=== PATIENT | female | born 1955 | race Caucasian/White ===

== ENCOUNTER 2019-11-16 09:14 | Observation (INO) | payer BC ==
[2019-11-16] MEDS ORDERED: ASPIRIN 81 MG PO STA (10:13)
[2019-11-16] MEDS ORDERED: SODIUM CHLORIDE 0.9% 500 ML 500 ML IV STA (10:13)
[2019-11-16 10:37] LABS: Basophils # (A) 0.1 k/uL (0-0.2); Basophils % (A) 1 %; Eosinophils # (A) 0.1 k/uL (0-0.7); Eosinophils % (A) 1 %; HCT 45.6 % (34.0-46.0); Lymphocytes # (A) 1.4 k/uL (1.0-4.8); Lymphocytes % (A) 16 %; MCHC 32.8 g/dL (31.0-37.0); MCV 91.5 fL (80.0-100.0); Mean Platelet Volume 7.7; Monocytes # (A) 0.3 k/uL (0-1.0); Monocytes % (A) 4 %; Neutrophils # (A) 6.6 k/uL (1.3-7.7); Neutrophils % (A) 77 %; Platelet Count 254 k/uL (150-450); RBC 4.99 m/uL (3.80-5.40); RDW 12.9 % (11.5-15.5); WBC 8.6 k/uL (3.8-10.6)
[2019-11-16 10:50] LABS: ALT 18 U/L (4-34); AST 27 U/L (14-36); African American GFR (CKD) >90 (>60 ml/min/1.73 sqM); Albumin 4.8 g/dL (3.5-5.0); Alkaline Phosphatase 96 U/L (38-126); Anion Gap 12 mmol/L; Blood Urea Nitrogen 16 mg/dL (7-17); Calcium 10.1 mg/dL (8.4-10.2); Carbon Dioxide 25 mmol/L (22-30); Chloride 104 mmol/L (98-107); Glucose 136 mg/dL (74-99); Non-African American GFR(CKD) 79 (>60 ml/min/1.73 sqM); Sodium 141 mmol/L (137-145); Total Bilirubin 0.6 mg/dL (0.2-1.3); Total Protein 8.4 g/dL (6.3-8.2)
--- NOTE | 2019-11-16 10:51 | ED ---
General Adult HPI - General Source: patient, RN notes reviewed, old records reviewed Mode of arrival: ambulatory Limitations: no limitations <Richi Adrian - Last Filed: 11/16/19 11:30> <Re Dunn - Last Filed: 11/24/19 12:21> - General Chief complaint: Chest Pain Stated complaint: "don't feel right" Time Seen by Provider: 11/16/19 09:58 - History of Present Illness Initial comments: 64-year-old female patient past history significant for hyperlipidemia, hypothyroidism, presents to ED for chief complaint of waxing and waning chest tightness, shortness of breath, generalized unwell feeling. Patient reports that she quit smoking 9 months ago. Patient reports that since she quit smoking she has not been feeling well. Reports that she has been experiencing exertional dyspnea. Reports that she has been experiencing daily sharp substernal chest pains. Reports that at this time she is not experiencing any chest pain. Reports that she did have a stress test approximately 15 years ago however she is unable tolerate it due to exercise capacity. Reports that she also had a echocardiogram which is reportedly benign. Denies any previous cardiac history. Denies any other complaints. Systemic: Pt denies fatigue, fever/chills, rash. Pt denies weakness, night sweats, weight loss. Neuro: Pt denies headache, visual disturbances, syncope or pre-syncope. HEENT: Pt denies ocular discharge or irritation, otalgia, rhinorrhea, pharyngitis or notable lymphadenopathy. Cardiopulmonary: Pt denies heart palpitations, dyspnea on exertion. Abdominal/GI: Pt denies abdominal pain, n/v/d. : Pt denies dysuria, burning w/ urination, frequency/urgency. Denies new onset urinary or bowel incontinence. MSK: Pt denies myalgia, loss of strength or function in extremities. Neuro: Pt denies new onset weakness, paresthesias. (Richi Adrian) - Related Data Home Medications Medication Instructions Recorded Confirmed Calcium Carbonate/Vitamin D3 1 tab PO W/SUPPER 11/16/19 11/16/19 [Calcium 500-Vit D3 200 Tablet] Levothyroxine Sodium [Synthroid] 75 mcg PO DAILY 11/16/19 11/16/19 Multivitamins, Thera [Multivitamin 1 tab PO W/SUPPER 11/16/19 11/16/19 (formulary)] Previous Rx's Medication Instructions Recorded Albuterol Sulfate [Proair Hfa] 1 - 2 puff INHALATION RT-Q6H PRN 11/17/19 #1 inhaler Doxycycline [Vibramycin] 100 mg PO BID 3 Days #6 cap 11/17/19 Ezetimibe [Zetia] 10 mg PO DAILY #30 tab 11/17/19 Famotidine [Pepcid] 20 mg PO Q12HR #60 tab 11/17/19 Pravastatin Sodium [Pravachol] 80 mg PO DAILY #30 tab 11/17/19 predniSONE 0 mg PO DIRECTED #30 tab 11/17/19 Allergies Allergy/AdvReac Type Severity Reaction Status Date / Time No Known Allergies Allergy Verified 11/16/19 11:24 Review of Systems ROS Other: All systems not noted in ROS Statement are negative. <Richi Adrian - Last Filed: 11/16/19 11:30> ROS Other: All systems not noted in ROS Statement are negative. <Re Dunn - Last Filed: 11/24/19 12:21> ROS Statement: Those systems with pertinent positive or pertinent negative responses have been documented in the HPI. Past Medical History Past Medical History: Hyperlipidemia History of Any Multi-Drug Resistant Organisms: None Reported Past Surgical History: Hysterectomy Past Psychological History: No Psychological Hx Reported Smoking Status: Former smoker Past Alcohol Use History: None Reported Past Drug Use History: None Reported <Richi Adrian - Last Filed: 11/16/19 11:30> - Past Family History Father Family Medical History: COPD, Coronary Artery Disease (CAD), Myocardial Infarction (TN) Additional Family Medical History / Comment(s): Father had his first TN at the age of 36 yrs. Mother Family Medical History: COPD, CVA/TIA Additional Family Medical History / Comment(s): Mother had a CVA at the age of 4 2 yrs. She had depression and urinary incontinence. <Re Dunn - Last Filed: 11/24/19 12:21> General Exam Limitations: no limitations <Richi Adrian - Last Filed: 11/16/19 11:30> - General Exam Comments Initial Comments: Constitutional: NAD, AOX3, Pt has pleasant affect. HEENT: NC/AT, trachea midline, neck supple, no lymphadenopathy. Posterior p harynx non erythematous, without exudates. External ears appear normal, without discharge. Mucous membranes moist. Eyes PERRLA, EOM intact. There is no scleral icterus. No pallor noted. Cardiopulmonary: RRR, no murmurs, rubs or gallops, no JVD noted. Lungs CTAB in anterior and posterior ornelas. No peripheral edema. Abdominal exam: Abdomen soft and non-distended. Abdomen non-tender to palpation in all 4 quadrants. Bowel sounds active in LLQ. No hepatosplenomegaly. No ecchymosis Neuro: CN II-XII intact. No nuchal rigidity. No raccon eyes, no quinonez sign, no hemotympanum. No cervical spinal tenderness. MSK: No posterior calf tenderness bilaterally, homans sign negative bilaterally. Posterior tibialis and radial pulse +2 bilaterally. Sensation intact in upper and lower extremities. Full active ROM in upper and lower extremities, 5/5 stregnth. (Richi Adrian) Course Vital Signs 11/16/19 11/16/19 11/16/19 09:16 09:42 10:03 Temperature 97.8 F Pulse Rate 118 H 98 Respiratory 19 18 18 Rate Blood Pressure 140/86 138/94 O2 Sat by Pulse 96 96 Oximetry 11/16/19 11/16/19 11/16/19 11:34 12:44 14:47 Temperature Pulse Rate 96 106 H 90 Respiratory 19 20 16 Rate Blood Pressure 137/95 131/99 141/98 O2 Sat by Pulse 96 96 95 Oximetry 11/16/19 14:56 Temperature 97.8 F Pulse Rate 90 Respiratory 16 Rate Blood Pressure 141/98 O2 Sat by Pulse 95 Oximetry Medical Decision Making - Lab Data Result diagrams: 11/16/19 09:53 11/16/19 09:53 - EKG Data -: EKG Interpreted by Me (and Dr. Dunn ) <Richi Adrian - Last Filed: 11/16/19 11:30> - Lab Data Result diagrams: 11/16/19 09:53 11/16/19 09:53 <Re Dunn - Last Filed: 11/24/19 12:21> - Medical Decision Making 64-year-old female patient past history significant for hyperlipidemia, hypothyroidism, presents to ED for chief complaint of waxing and waning chest tightness, shortness of breath, generalized unwell feeling. Patient reports that she quit smoking 9 months ago. Patient reports that since she quit smoking she has not been feeling well. Reports that she has been experiencing exertional dyspnea. Reports that she has been experiencing daily sharp substernal chest pains. Reports that at this time she is not experiencing any chest pain. Reports that she did have a stress test approximately 15 years ago however she is unable tolerate it due to exercise capacity. Reports that she also had a echocardiogram which is reportedly benign. Denies any previous cardiac history. Denies any other complaints. Patient vital signs are stable, afebrile. Physical exam demonstrate acute pathology. The investigations are overall benign. D-dimer is negative. Troponin is negative. TSH is within normal limits. UA negative. Chest x-ray negative for acute pulmonary disease. EKG does display t wave inversions. Patient will be admitted for cardiology evaluation serial troponins. Case discussed with Dr. Dunn. (Richi Adrian) I was available for consultation in the emergency department. The history and physical exam were done by the midlevel provider. I was consulted for this patie nts care. I reviewed the case with the midlevel provider and based on their presentation of the patient, I agree with the assessment, medical decision making and plan of care as documented. I discussed the patients care with Dr. Johnson who accepted admission of the patient. Chart was dictated using wywy dictation software. Attempts were made to correct any dictation errors however some typographical errors may persist. (Re Dunn) - Lab Data Lab Results 11/16/19 11/16/19 11/16/19 Range/Units 09:53 09:53 09:53 WBC 8.6 (3.8-10.6) k/uL RBC 4.99 (3.80-5.40) m/uL Hgb 15.0 (11.4-16.0) gm/dL Hct 45.6 (34.0-46.0) % MCV 91.5 (80.0-100.0) fL MCH 30.0 (25.0-35.0) pg MCHC 32.8 (31.0-37.0) g/dL RDW 12.9 (11.5-15.5) % Plt Count 254 (150-450) k/uL Neutrophils % 77 % Lymphocytes % 16 % Monocytes % 4 % Eosinophils % 1 % Basophils % 1 % Neutrophils # 6.6 (1.3-7.7) k/uL Lymphocytes # 1.4 (1.0-4.8) k/uL Monocytes # 0.3 (0-1.0) k/uL Eosinophils # 0.1 (0-0.7) k/uL Basophils # 0.1 (0-0.2) k/uL PT 10.2 (9.0-12.0) sec INR 1.0 (<1.2) APTT 22.9 (22.0-30.0) sec D-Dimer 0.27 (<0.60) mg/L FEU Sodium 141 (137-145) mmol/L Potassium 4.0 (3.5-5.1) mmol/L Chloride 104 (98-107) mmol/L Carbon Dioxide 25 (22-30) mmol/L Anion Gap 12 mmol/L BUN 16 (7-17) mg/dL Creatinine 0.81 (0.52-1.04) mg/dL Est GFR (CKD-EPI)AfAm >90 (>60 ml/min/1.73 sqM) Est GFR (CKD-EPI)NonAf 79 (>60 ml/min/1.73 sqM) Glucose 136 H (74-99) mg/dL Plasma Lactic Acid Meek (0.7-2.0) mmol/L Calcium 10.1 (8.4-10.2) mg/dL Magnesium 2.0 (1.6-2.3) mg/dL Total Bilirubin 0.6 (0.2-1.3) mg/dL AST 27 (14-36) U/L ALT 18 (4-34) U/L Alkaline Phosphatase 96 (38-126) U/L Troponin I (0.000-0.034) ng/mL NT-Pro-B Natriuret Pep pg/mL Total Protein 8.4 H (6.3-8.2) g/dL Albumin 4.8 (3.5-5.0) g/dL Triglycerides (<150) mg/dL Cholesterol (<200) mg/dL LDL Cholesterol, Calc (0-99) mg/dL HDL Cholesterol (40-60) mg/dL TSH 2.970 (0.465-4.680) mIU/L Urine Color Urine Appearance (Clear) Urine pH (5.0-8.0) Ur Specific Julian (1.001-1.035) Urine Protein (Negative) Urine Glucose (UA) (Negative) Urine Ketones (Negative) Urine Blood (Negative) Urine Nitrite (Negative) Urine Bilirubin (Negative) Urine Urobilinogen (<2.0) mg/dL Ur Leukocyte Esterase (Negative) Urine RBC (0-5) /hpf Urine WBC (0-5) /hpf Ur Squamous Epith Cells (0-4) /hpf Urine Mucus (None) /hpf 11/16/19 11/16/19 11/16/19 Range/Units 09:53 09:53 09:53 WBC (3.8-10.6) k/uL RBC (3.80-5.40) m/uL Hgb (11.4-16.0) gm/dL Hct (34.0-46.0) % MCV (80.0-100.0) fL MCH (25.0-35.0) pg MCHC (31.0-37.0) g/dL RDW (11.5-15.5) % Plt Count (150-450) k/uL Neutrophils % % Lymphocytes % % Monocytes % % Eosinophils % % Basophils % % Neutrophils # (1.3-7.7) k/uL Lymphocytes # (1.0-4.8) k/uL Monocytes # (0-1.0) k/uL Eosinophils # (0-0.7) k/uL Basophils # (0-0.2) k/uL PT (9.0-12.0) sec INR (<1.2) APTT (22.0-30.0) sec D-Dimer (<0.60) mg/L FEU Sodium (137-145) mmol/L Potassium (3.5-5.1) mmol/L Chloride (98-107) mmol/L Carbon Dioxide (22-30) mmol/L Anion Gap mmol/L BUN (7-17) mg/dL Creatinine (0.52-1.04) mg/dL Est GFR (CKD-EPI)AfAm (>60 ml/min/1.73 sqM) Est GFR (CKD-EPI)NonAf (>60 ml/min/1.73 sqM) Glucose (74-99) mg/dL Plasma Lactic Acid Meek 2.0 (0.7-2.0) mmol/L Calcium (8.4-10.2) mg/dL Magnesium (1.6-2.3) mg/dL Total Bilirubin (0.2-1.3) mg/dL AST (14-36) U/L ALT (4-34) U/L Alkaline Phosphatase (38-126) U/L Troponin I <0.012 (0.000-0.034) ng/mL NT-Pro-B Natriuret Pep 69 pg/mL Total Protein (6.3-8.2) g/dL Albumin (3.5-5.0) g/dL Triglycerides (<150) mg/dL Cholesterol (<200) mg/dL LDL Cholesterol, Calc (0-99) mg/dL HDL Cholesterol (40-60) mg/dL TSH (0.465-4.680) mIU/L Urine Color Urine Appearance (Clear) Urine pH (5.0-8.0) Ur Specific Julian (1.001-1.035) Urine Protein (Negative) Urine Glucose (UA) (Negative) Urine Ketones (Negative) Urine Blood (Negative) Urine Nitrite (Negative) Urine Bilirubin (Negative) Urine Urobilinogen (<2.0) mg/dL Ur Leukocyte Esterase (Negative) Urine RBC (0-5) /hpf Urine WBC (0-5) /hpf Ur Squamous Epith Cells (0-4) /hpf Urine Mucus (None) /hpf 11/16/19 11/16/19 Range/Units 09:53 10:42 WBC (3.8-10.6) k/uL RBC (3.80-5.40) m/uL Hgb (11.4-16.0) gm/dL Hct (34.0-46.0) % MCV (80.0-100.0) fL MCH (25.0-35.0) pg MCHC (31.0-37.0) g/dL RDW (11.5-15.5) % Plt Count (150-450) k/uL Neutrophils % % Lymphocytes % % Monocytes % % Eosinophils % % Basophils % % Neutrophils # (1.3-7.7) k/uL Lymphocytes # (1.0-4.8) k/uL Monocytes # (0-1.0) k/uL Eosinophils # (0-0.7) k/uL Basophils # (0-0.2) k/uL PT (9.0-12.0) sec INR (<1.2) APTT (22.0-30.0) sec D-Dimer (<0.60) mg/L FEU Sodium (137-145) mmol/L Potassium (3.5-5.1) mmol/L Chloride (98-107) mmol/L Carbon Dioxide (22-30) mmol/L Anion Gap mmol/L BUN (7-17) mg/dL Creatinine (0.52-1.04) mg/dL Est GFR (CKD-EPI)AfAm (>60 ml/min/1.73 sqM) Est GFR (CKD-EPI)NonAf (>60 ml/min/1.73 sqM) Glucose (74-99) mg/dL Plasma Lactic Acid Meek (0.7-2.0) mmol/L Calcium (8.4-10.2) mg/dL Magnesium (1.6-2.3) mg/dL Total Bilirubin (0.2-1.3) mg/dL AST (14-36) U/L ALT (4-34) U/L Alkaline Phosphatase (38-126) U/L Troponin I (0.000-0.034) ng/mL NT-Pro-B Natriuret Pep pg/mL Total Protein (6.3-8.2) g/dL Albumin (3.5-5.0) g/dL Triglycerides 101 (<150) mg/dL Cholesterol 213 H (<200) mg/dL LDL Cholesterol, Calc 131 H (0-99) mg/dL HDL Cholesterol 62 H (40-60) mg/dL TSH (0.465-4.680) mIU/L Urine Color Yellow Urine Appearance Clear (Clear) Urine pH 6.5 (5.0-8.0) Ur Specific Julian 1.007 (1.001-1.035) Urine Protein Negative (Negative) Urine Glucose (UA) Negative (Negative) Urine Ketones Negative (Negative) Urine Blood Negative (Negative) Urine Nitrite Negative (Negative) Urine Bilirubin Negative (Negative) Urine Urobilinogen <2.0 (<2.0) mg/dL Ur Leukocyte Esterase Trace H (Negative) Urine RBC <1 (0-5) /hpf Urine WBC 2 (0-5) /hpf Ur Squamous Epith Cells <1 (0-4) /hpf Urine Mucus Rare H (None) /hpf - EKG Data EKG Comments: Ventricular rate 95, RI interval 120, QRS 82, QT/QTC 306/484. Normal sensory ago, nonspecific ST and T-wave abnormality. Abnormal EKG. (Richi Adrian) Disposition Is patient prescribed a controlled substance at d/c from ED?: No <Richi Adrian - Last Filed: 11/16/19 11:30> <Re Dunn - Last Filed: 11/24/19 12:21> Clinical Impression: Chest pain Disposition: ADMITTED IP TO THIS HOSP Condition: Serious
[2019-11-16 10:52] LABS: D-Dimer 0.27 mg/L FEU (<0.60); Partial Thromboplastin Time 22.9 sec (22.0-30.0); Prothrombin Time 10.2 sec (9.0-12.0)
[2019-11-16 11:00] LABS: Appearance,Urine Clear (Clear); Bilirubin,Urine Negative (Negative); Blood,Urine Negative (Negative); Color,Urine Yellow; Glucose,Urine (UA) Negative (Negative); Ketones,Urine Negative (Negative); Leukocyte Esterase,Urine Trace (Negative); Mucus,Urine Rare /hpf; Nitrite,Urine Negative (Negative); PH, Urine 6.5 (5.0-8.0); Protein,Urine Negative (Negative); RBC,Urine <1 /hpf (0-5); Specific Gravity,Urine 1.007 (1.001-1.035); Squamous Epithelial Cell,Urine <1 /hpf (0-4); Urobilinogen,Urine <2.0 mg/dL (<2.0); WBC,Urine 2 /hpf (0-5)
--- NOTE | 2019-11-16 11:01 | XR ---
EXAMINATION TYPE: XR chest 2V DATE OF EXAM: 11/16/2019 COMPARISON: NONE HISTORY: Shortness of breath TECHNIQUE: Frontal and lateral views of the chest are obtained. FINDINGS: Scattered senescent parenchymal changes noted. Hyperinflation compatible with COPD. No evidence for infiltrate. No evidence for atelectasis. Heart size is stable. Mediastinal structures are stable and grossly unremarkable. No evidence for hilar prominence. Degenerative changes dorsal spine. IMPRESSION: 1. No evidence for acute pulmonary disease.
[2019-11-16] MEDS ORDERED: NITROGLYCERIN SL TABS 0.4 MG TAB SUBLINGUAL PRN (11:31)
[2019-11-16] MEDS ORDERED: IPRATROPIUM-ALBUTEROL 3 ML NEB INHALATION PRN (11:33)
--- NOTE | 2019-11-16 13:00 | ECHOF ---
Referral Reason:chest pain, prior 15+ years ago MEASUREMENTS -------- HEIGHT: 160.0 cm WEIGHT: 60.8 kg BP: 137/95 RVIDd: 2.8 cm (< 3.3) IVSd: 1.1 cm (0.6 - 1.1) LVIDd: 3.6 cm (3.9 - 5.3) LVPWd: 1.3 cm (0.6 - 1.1) IVSs: 1.5 cm LVIDs: 2.4 cm LVPWs: 1.7 cm LA Diam: 3.1 cm (2.7 - 3.8) Ao Diam: 3.1 cm (2.0 - 3.7) AV Cusp: 2.0 cm (1.5 - 2.6) MV EXCURSION: 18.829 mm (> 18.000) MV EF SLOPE: 55 mm/s (70 - 150) EPSS: 0.7 cm MV E Jordan: 0.63 m/s MV DecT: 252 ms MV A Jordan: 0.80 m/s MV E/A Ratio: 0.79 TAPSE: 20.13 mm FINDINGS -------- Sinus rhythm. This was a technically adequate study. The left ventricular size is normal. There is mild concentric left ventricular hypertrophy. Overa ll left ventricular systolic function is normal with, an EF between 60 - 65 %. The right ventricle is normal in size. The left atrial size is normal. The right atrium is normal in size. Interatrial and interventricular septum intact. The aortic valve is trileaflet and appears structurally normal. The mitral valve is normal. The tricuspid valve appears structurally normal. There is no pulmonic regurgitation present. The aortic root size is normal. Normal inferior vena cava with normal inspiratory collapse consistent with estimated right atrial pre ssure of 5 mmHg. Echo free space may represent effusion or a pericardial fat pad. CONCLUSIONS -------- 1. Sinus rhythm. 2. This was a technically adequate study. 3. The left ventricular size is normal. 4. There is mild concentric left ventricular hypertrophy. 5. Overall left ventricular systolic function is normal with, an EF between 60 - 65 %. 6. The right ventricle is normal in size. 7. The left atrial size is normal. 8. The right atrium is normal in size. 9. Interatrial and interventricular septum intact. 10. The aortic valve is trileaflet and appears structurally normal. 11. The mitral valve is normal. 12. The tricuspid valve appears structurally normal. 13. There is no pulmonic regurgitation present. 14. The aortic root size is normal. 15. Normal inferior vena cava with normal inspiratory collapse consistent with estimated right atrial pressure of 5 mmHg. 16. Echo free space may represent effusion or a pericardial fat pad. COMMERCIAL CREDIT REVIEWER: Sonia Fernandez RDCS
--- NOTE | 2019-11-16 13:06 | P.HPIM ---
History of Present Illness This is a pleasant 64 years old female with past medical history of hyperlipidemia and hypothyroidism who presents because of ongoing dyspnea. Patient used to smoke about 1 pack per day she quit about 9 months ago because she was feeling dyspnea, however her dyspnea wasn't improving and she kept having this chest tightness. She went to see her primary care Dr. Curtis yesterday with an EKG and found a missed. A here for her to emergency room. Also patient was feeling jittery and palpitation however she denies overt chest pain, no neck pain or arm pain. She denies alcohol or illicit drugs. Vital signs stable. Labs including CBC, BMP, INR, liver enzymes are unremarkable, Glucose slightly elevated at 136. Chest x-ray no acute process, hyperinflation goes with COPD. D-dimer is negative for 0.27 In the emergency room patient was started on aspirin and normal saline and 100 mL per hour Echocardiogram showing mild left ventricular hypertrophy with ejection fraction 60-65% with no significant valvular heart disease Review of Systems CONSTITUTIONAL: No fever, no malaise, no fatigue. HEENT: No recent visual problems or hearing problems. Denied any sore throat. CARDIOVASCULAR: No orthopnea, PND, no palpitations, no syncope. PULMONARY: No shortness of breath, no cough, no hemoptysis. GASTROINTESTINAL: No diarrhea, no nausea, no vomiting, no abdominal pain. Normoactive bowel sounds. NEUROLOGICAL: No headaches, no weakness, no numbness. HEMATOLOGICAL: Denies any bleeding or petechiae. GENITOURINARY: Denies any burning micturition, frequency, or urgency. MUSCULOSKELETAL/RHEUMATOLOGICAL: Denies any joint pain, swelling, or any muscle pain. ENDOCRINE: Denies any polyuria or polydipsia. Past Medical History Past Medical History: Hyperlipidemia History of Any Multi-Drug Resistant Organisms: None Reported Past Surgical History: Hysterectomy Past Psychological History: No Psychological Hx Reported Smoking Status: Former smoker Past Alcohol Use History: None Reported Past Drug Use History: None Reported Medications and Allergies Home Medications Medication Instructions Recorded Confirmed Type Albuterol Sulfate [Proair Hfa] 1 - 2 puff INHALATION RT-Q6H PRN 11/16/19 11/16/19 History Calcium Carbonate/Vitamin D3 1 tab PO W/SUPPER 11/16/19 11/16/19 History [Calcium 500-Vit D3 200 Tablet] Levothyroxine Sodium [Synthroid] 75 mcg PO DAILY 11/16/19 11/16/19 History Multivitamins, Thera [Multivitamin 1 tab PO W/SUPPER 11/16/19 11/16/19 History (formulary)] Pravastatin Sodium [Pravachol] 40 mg PO DAILY 11/16/19 11/16/19 History Allergies Allergy/AdvReac Type Severity Reaction Status Date / Time No Known Allergies Allergy Verified 11/16/19 11:24 Physical Exam Vitals: Vital Signs Temp Pulse Resp BP Pulse Ox 11/16/19 11:34 96 19 137/95 96 11/16/19 10:03 98 18 138/94 96 11/16/19 09:42 18 11/16/19 09:16 97.8 F 118 H 19 140/86 96 Intake and Output 11/15/19 11/16/19 11/16/19 22:59 06:59 14:59 Other: Weight 60.827 kg GENERAL: The patient is alert and oriented x3, not in any acute distress. Well developed, well nourished. HEENT: Pupils are round and equally reacting to light. EOMI. No scleral icterus. No conjunctival pallor. Normocephalic, atraumatic. No pharyngeal erythema. No thyromegaly. CARDIOVASCULAR: S1 and S2 present. No murmurs, rubs, or gallops. PULMONARY: Chest is clear to auscultation, no wheezing or crackles. ABDOMEN: Soft, nontender, nondistended, normoactive bowel sounds. No palpable organomegaly. MUSCULOSKELETAL: No joint swelling or deformity. EXTREMITIES: No cyanosis, clubbing, or pedal edema. NEUROLOGICAL: Gross neurological examination did not reveal any focal deficits. SKIN: No rashes. No petechiae Results CBC & Chem 7: 11/16/19 09:53 11/16/19 09:53 Labs: Abnormal Lab Results - Last 24 Hours (Table) 11/16/19 11/16/19 Range/Units 09:53 10:42 Glucose 136 H (74-99) mg/dL Total Protein 8.4 H (6.3-8.2) g/dL Ur Leukocyte Esterase Trace H (Negative) Urine Mucus Rare H (None) /hpf Assessment and Plan Assessment: ongoing dyspnea, possible acute COPD exacerbation. Hyperglycemia, rule out diabetes mellitus Hypothyroidism Hyperlipidemia Plan: This Is a pleasant 64 years old female who presents with dyspnea. We will do troponins and EKG. Cardiology consult. Continue with aspirin. Start patient on steroids, broncho-dilator and oxygen as needed. Labs and medication were reviewed.. Continue same treatment. Continue with symptomatic treatment. Resume home medication. Monitor lytes and vitals. DVT and GI prophylaxis. Further recommendations of the clinical course of the patient DVT prophylaxis: Subcutaneous heparin GI Prophylaxis: Pepcid
[2019-11-16] MEDS: DOXYCYCLINE 100 MG CAP PO SCH ×2 (14:44→23:28)
[2019-11-16] MEDS: SODIUM CHLORIDE 0.9% 1,000 ML IV SCH ×2 (14:46→23:26)
[2019-11-16 15:08] VITALS: RESP 18
[2019-11-16] MEDS: methylPREDNISolone SOD SUCCI 125 MG/2 ML VIAL IV SCH ×2 (15:19→20:37)
[2019-11-16] MEDS ORDERED: CALCIUM CARB-VIT D 500MG-200UN 1 EACH TAB PO SCH (17:30)
[2019-11-16] MEDS: FAMOTIDINE 20 MG/2 ML VIAL IV SCH (20:39)
[2019-11-16] MEDS: HEPARIN SODIUM,PORCINE 5,000 UNIT/ML 1 ML VIAL SQ SCH (20:40)
[2019-11-17] MEDS: methylPREDNISolone SOD SUCCI 125 MG/2 ML VIAL IV SCH ×3 (04:05→11:28)
[2019-11-17 04:31] LABS: Cholesterol 213 mg/dL (<200); HDL Cholesterol 62 mg/dL (40-60); LDL Cholesterol,Calculated 131 mg/dL (0-99); Triglycerides 101 mg/dL (<150)
[2019-11-17] MEDS ORDERED: LEVOTHYROXINE 75 MCG TAB PO SCH (06:30)
[2019-11-17 07:14] LABS: Glucose,Whole Blood 132 mg/dL (75-99)
[2019-11-17 07:52] VITALS: TEMP 97.9
[2019-11-17] MEDS: INSULIN ASPART (NovoLOG) 100 UNIT/ML VIAL SQ SCH ×2 (08:03→13:32)
[2019-11-17] MEDS ORDERED: PRAVASTATIN SODIUM 80 MG TAB PO SCH (09:00)
[2019-11-17] MEDS ORDERED: PRAVASTATIN SODIUM 40 MG TAB PO SCH (09:00)
[2019-11-17] MEDS ORDERED: ASPIRIN 325 MG TAB PO SCH (09:00)
[2019-11-17] MEDS ORDERED: EZETIMIBE 10 MG TAB PO SCH (09:00)
[2019-11-17] MEDS ORDERED: DOBUTamine DRIP for NUC MED 500 MG in DEXTROSE/WATER 1 250ML.BAG IV ONE (09:21)
--- NOTE | 2019-11-17 10:29 | P.CRDCN ---
History of Present Illness History of present illness: HISTORY OF PRESENTING ILLNESS This is a pleasant 64-year-old female past medical history significant for dyslipidemia, hypothyroidism and former nicotine dependence. She quit [employer] 9 months ago. She denies prior history of coronary artery disease and does not follow with a sustainability officer for any reason. Her father had his first myocardial infarction at the age of 36. We have been asked to see in consultation for chest pain. She states for the previous 8 months she has n oticed a change in her level of activity associated with shortness of breath. She states any mild activity such as mopping her floor causes her to become short of breath. When she stops the activity her breathing improves. When she is having a hard time breathing she then starts feeling a tightness in her chest. The tightness in the chest subsided and her breathing improves. She denies radiation to the arm, back, neck or jaw. She denies associated dizziness, palpitations, nausea, vomiting or diaphoresis. She states she has undergone stress testing approximately 15 years ago that was unremarkable. She states she has only been told she has an abnormal EKG. There is no old for comparison. Echocardiogram obtained reveals preserved LV systolic function with ejection fraction 60-65%. DIAGNOSTICS EKG reveals sinus mechanism with nonspecific ST abnormalities noted in inferior lateral leads. There is no old EKG for comparison. Chest xray negative for an acute cardiopulmonary process with evidence of hyperinflation. Laboratory reviewed, CBC unremarkable, d-dimer 0.27, sodium 141, potassium 4.0, creatinine 0.81, magnesium 2.0, cardiac enzymes negative 3, NT proBNP 69, LDL 131, HDL 62 and TSH 2.97. Current cardiac medications include pravastatin 40 mg daily. REVIEW OF SYSTEMS At the time of my exam: CONSTITUTIONAL: Denies fever or chills. CARDIOVASCULAR: Denies chest pain, shortness of breath, orthopnea, PND or palpitations. RESPIRATORY: Denies cough. GASTROINTESTINAL: Denies abdominal pain, diarrhea, constipation, nausea or vomiting. MUSCULOSKELETAL: Denies myalgias. NEUROLOGIC: Denies numbness, tingling or weakness. ENDOCRINE: Denies fatigue, weight change, polydipsia or polyurina. GENITOURINARY: Denies burning, hematuria or urgency with micturation. HEMATOLOGIC: Denies history of anemia or bleeding. PHYSICAL EXAMINATION Blood pressure 125/87 heart rate 93 afebrile and maintaining oxygen saturation on room air. CONSTITUTIONAL: No apparent distress. HEENT: Head is normocephalic. Pupils are equal, round. Sclerae anicteric. Mucous membranes of the mouth are moist. No JVD. No carotid bruit. CHEST EXAMINATION: Lungs are clear to auscultation. No chest wall tenderness is noted on palpation or with deep breathing. Diminished bilaterally. HEART EXAMINATION: Regular rate and rhythm. S1, S2 heard. No murmurs, gallops or rub. ABDOMEN: Soft, nontender. Positive bowel sounds. EXTREMITIES: 2+ peripheral pulses, no lower extremity edema and no calf tenderness. NEUROLOGIC EXAMINATION: Patient is awake, alert and oriented x3. ASSESSMENT Chest pain and shortness of breath. An acute coronary event has been ruled out. Symptoms could also be related to underlying COPD. Dyslipidemia, uncontrolled on current regimen Former nicotine dependence, quit smoking 9 months ago Significant family history of premature coronary artery disease PLAN An acute coronary event has been ruled out. Recommend increasing pravastatin to 80 mg daily and add zetia to control her LDL cholesterol. If this regimen does not improve she may then require repatha. Perform stress echocardiogram to assess for stress induced ischemia. Recommend outpatient pulmonary evaluation of likely underlying COPD. Thank you kindly for this consultation. Nurse Practitioner note has been reviewed, I agree with a documented findings and plan of care. Patient was seen and examined. Past Medical History Past Medical History: COPD, Eye Disorder, Hyperlipidemia, Osteoarthritis (OA), Thyroid Disorder Additional Past Medical History / Comment(s): Bilateral cataracts, arthritis R side of body, hypothyroid, just learned today that I have COPD. History of Any Multi-Drug Resistant Organisms: None Reported Past Surgical History: Breast Surgery, Hysterectomy, Orthopedic Surgery, Tonsillectomy Additional Past Surgical History / Comment(s): L breast benign lumpectomy, colonoscopy, bilateral ankle surgery as a child to remove extra bone. Past Anesthesia/Blood Transfusion Reactions: No Reported Reaction Smoking Status: Former smoker - Past Family History Father Family Medical History: COPD, Coronary Artery Disease (CAD), Myocardial Infarc tion ([place]) Additional Family Medical History / Comment(s): Father had his first ME at the age of 36 yrs. Mother Family Medical History: COPD, CVA/TIA Additional Family Medical History / Comment(s): Mother had a CVA at the age of 42 yrs. She had depression and urinary incontinence. Medications and Allergies Home Medications Medication Instructions Recorded Confirmed Type Albuterol Sulfate [Proair Hfa] 1 - 2 puff INHALATION RT-Q6H PRN 11/16/19 11/16/19 History Calcium Carbonate/Vitamin D3 1 tab PO W/SUPPER 11/16/19 11/16/19 History [Calcium 500-Vit D3 200 Tablet] Levothyroxine Sodium [Synthroid] 75 mcg PO DAILY 11/16/19 11/16/19 History Multivitamins, Thera [Multivitamin 1 tab PO W/SUPPER 11/16/19 11/16/19 History (formulary)] Pravastatin Sodium [Pravachol] 40 mg PO DAILY 11/16/19 11/16/19 History Allergies Allergy/AdvReac Type Severity Reaction Status Date / Time No Known Allergies Allergy Verified 11/16/19 11:24 Physical Exam Vitals: Vital Signs Temp Pulse Pulse Pulse Resp BP BP 11/17/19 07:49 97.9 F 93 18 125/87 11/17/19 04:00 98.1 F 97 18 119/77 11/16/19 23:40 18 11/16/19 23:34 98.1 F 93 18 122/79 11/16/19 19:43 98.0 F 92 18 135/88 11/16/19 19:30 15 11/16/19 15:07 98.1 F 88 18 11/16/19 14:56 97.8 F 90 16 141/98 11/16/19 14:47 90 16 141/98 11/16/19 12:44 106 H 20 131/99 11/16/19 11:34 96 19 137/95 11/16/19 10:03 98 18 138/94 11/16/19 09:42 18 11/16/19 09:16 97.8 F 118 H 19 140/86 BP Pulse Ox 11/17/19 07:49 90 L 11/17/19 04:00 93 L 11/16/19 23:40 11/16/19 23:34 92 L 11/16/19 19:43 94 L 11/16/19 19:30 11/16/19 15:07 131/89 94 L 11/16/19 14:56 95 11/16/19 14:47 95 11/16/19 12:44 96 11/16/19 11:34 96 01/23/20 10:03 96 11/16/19 09:42 11/16/19 09:16 96 Intake and Output 11/16/19 11/17/19 11/17/19 22:59 06:59 14:59 Intake Total 300 Balance 300 Intake: Oral 300 Other: Voiding Method Toilet Toilet # Voids 1 1 Results 11/16/19 09:53 11/16/19 09:53 Cardiac Enzymes 11/16/19 11/16/19 11/16/19 Range/Units 09:53 09:53 15:58 AST 27 (14-36) U/L Troponin I <0.012 <0.012 (0.000-0.034) ng/mL 11/16/19 Range/Units 22:03 AST (14-36) U/L Troponin I <0.012 (0.000-0.034) ng/mL Coagulation 11/16/19 Range/Units 09:53 PT 10.2 (9.0-12.0) sec APTT 22.9 (22.0-30.0) sec Lipids 11/16/19 Range/Units 09:53 Triglycerides 101 (<150) mg/dL Cholesterol 213 H (<200) mg/dL HDL Cholesterol 62 H (40-60) mg/dL CBC 11/16/19 Range/Units 09:53 WBC 8.6 (3.8-10.6) k/uL RBC 4.99 (3.80-5.40) m/uL Hgb 15.0 (11.4-16.0) gm/dL Hct 45.6 (34.0-46.0) % Plt Count 254 (150-450) k/uL Comprehensive Metabolic Panel 11/16/19 Range/Units 09:53 Sodium 141 (137-145) mmol/L Potassium 4.0 (3.5-5.1) mmol/L Chloride 104 (98-107) mmol/L Carbon Dioxide 25 (22-30) mmol/L BUN 16 (7-17) mg/dL Creatinine 0.81 (0.52-1.04) mg/dL Glucose 136 H (74-99) mg/dL Calcium 10.1 (8.4-10.2) mg/dL AST 27 (14-36) U/L ALT 18 (4-34) U/L Alkaline Phosphatase 96 (38-126) U/L Total Protein 8.4 H (6.3-8.2) g/dL Albumin 4.8 (3.5-5.0) g/dL Current Medications Generic Name Dose Route Start Last Admin Trade Name Freq PRN Reason Stop Dose Admin Albuterol/Ipratropium 3 ml 11/16/19 11:33 Duoneb 0.5 Mg-3 Mg/3 Ml Soln INHALATION RT-Q4H PRN Shortness Of Breath Or Wheezing Aspirin 325 mg 11/17/19 09:00 Aspirin PO DAILY [facility] Calcium Carbonate 1 each 11/16/19 17:30 11/16/19 17:03 Oscal 500+D PO 1 each W/SUPPER ROSA Administration Doxycycline Monohydrate 100 mg 11/16/19 13:15 11/16/19 23:28 Vibramycin PO 11/21/19 13:16 100 mg BID ROSA Administration Famotidine 20 mg 11/16/19 21:00 11/16/19 20:39 Pepcid IV Not Given Q12HR [facility] Heparin Sodium (Porcine) 5,000 unit 11/16/19 21:00 11/16/19 20:40 Heparin SQ 5,000 unit Q12HR ROSA Administration Sodium Chloride 1,000 mls @ 75 mls/hr 11/16/19 11:45 11/16/19 23:26 Saline 0.9% IV 100 mls/hr .[id number] ROSA Administration Insulin Aspart 0 unit 11/17/19 07:30 Novolog SQ ACHS [facility] Protocol Levothyroxine Sodium 75 mcg 11/17/19 06:30 Synthroid PO 0630 [facility] Methylprednisolone Sodium Succinate 60 mg 11/16/19 13:15 11/17/19 04:05 Solu-Medrol IV 60 mg Q6HR ROSA Administration Nitroglycerin 0.4 mg 11/16/19 11:31 Nitrostat SUBLINGUAL Q5M PRN Chest Pain Pravastatin Sodium 40 mg 11/17/19 09:00 Pravachol PO DAILY [facility] Intake and Output 11/16/19 11/17/19 11/17/19 22:59 06:59 14:59 Intake Total 300 Balance 300 Intake: Oral 300 Other: Voiding Method Toilet Toilet # Voids 1 1 11/16/19 09:53 11/16/19 09:53
[2019-11-17 11:24] VITALS: BP 137/89; PULSE 100
[2019-11-17 12:35] LABS: Glucose,Whole Blood 121 mg/dL (75-99)
[2019-11-17] MEDS: HEPARIN SODIUM,PORCINE 5,000 UNIT/ML 1 ML VIAL SQ SCH (13:30)
[2019-11-17] MEDS: FAMOTIDINE 20 MG/2 ML VIAL IV SCH ×2 (13:30→13:34)
[2019-11-17] MEDS: DOXYCYCLINE 100 MG CAP PO SCH (13:31)
--- NOTE | 2019-11-17 15:27 | P.DS ---
Providers Date of admission: 11/16/19 11:55 Attending physician: Brielle Pineda Consults: 11/16/19 11:31 Consult Physician Urgent Consulting Provider: Anuj Cooney Consult Reason/Comments: chest pain Do you want consulting provider notified?: Yes Primary care physician: Leila Curtis Hospital Course: Diagnoses: ongoing dyspnea, possible acute COPD exacerbation. Hypothyroidism Hyperlipidemia Hospital course: This is a pleasant 64 years old female with past medical history of hyperlipidemia and hypothyroidism who presents because of ongoing dyspnea. Patient used to smoke about 1 pack per day she quit about 9 months ago because she was feeling dyspnea, however her dyspnea wasn't improving and she kept having this chest tightness. She went to see her primary care Dr. Curtis yesterday with an EKG and found a missed period. A he referred for her to emergency room. Also patient was feeling jittery and palpitation however she denies overt chest pain, no neck pain or arm pain. She denies alcohol or illicit drugs. Patient has been evaluated by tie puller and she has negative stress test, cardiology cleared her for discharge and adjusted some of her medication Patient was started on steroids and antibiotics and she felt better and significant improvement. Her dyspnea significantly improved. No coughing. No other complaint no change in urine or bowel habits, no nausea vomiting, no fever no headache. Problems and management plan were discussed with the patient and he verbalized understanding and acceptance Patient was found stable and can be discharged home however he needs follow-up as an outpatient. Patient was instructed to follow up with PCP within one week and patient agrees also patient referred for outpatient follow-up with her employee communications manager Dr. Pedroza and she agreed to see him in 1-2 weeks. Also she agrees with the appointments made for her with Dr. Alexander the tie puller Gen: patient is a AAOx3, no distress CVS: S1-S2, RRR, no murmur Lungs: B/L CTA, no wheezing Abdomen: soft, no distention, no tenderness, positive bowel sounds Extremity: no leg edema or induration Time spent more than 35 minutes. Patient Condition at Discharge: Serious Plan - Discharge Summary Discharge Rx Participant: No New Discharge Prescriptions: New Famotidine [Pepcid] 20 mg PO Q12HR #60 tab Pravastatin Sodium [Pravachol] 80 mg PO DAILY #30 tab predniSONE 0 mg PO DIRECTED #30 tab Doxycycline [Vibramycin] 100 mg PO BID 3 Days #6 cap Ezetimibe [Zetia] 10 mg PO DAILY #30 tab Continue Multivitamins, Thera [Multivitamin (formulary)] 1 tab PO W/SUPPER Levothyroxine Sodium [Synthroid] 75 mcg PO DAILY Calcium Carbonate/Vitamin D3 [Calcium 500-Vit D3 200 Tablet] 1 tab PO W/SUPPER Albuterol Sulfate [Proair Hfa] 1 - 2 puff INHALATION RT-Q6H PRN #1 inhaler PRN Reason: Shortness Of Breath Discontinued Pravastatin Sodium [Pravachol] 40 mg PO DAILY Discharge Medication List Calcium Carbonate/Vitamin D3 [Calcium 500-Vit D3 200 Tablet] 1 tab PO W/SUPPER 11/16/19 [History] Levothyroxine Sodium [Synthroid] 75 mcg PO DAILY 11/16/19 [History] Multivitamins, Thera [Multivitamin (formulary)] 1 tab PO W/SUPPER 11/16/19 [History] Albuterol Sulfate [Proair Hfa] 1 - 2 puff INHALATION RT-Q6H PRN #1 inhaler 11/17/19 [Rx] Doxycycline [Vibramycin] 100 mg PO BID 3 Days #6 cap 11/17/19 [Rx] Ezetimibe [Zetia] 10 mg PO DAILY #30 tab 11/17/19 [Rx] Famotidine [Pepcid] 20 mg PO Q12HR #60 tab 11/17/19 [Rx] Pravastatin Sodium [Pravachol] 80 mg PO DAILY #30 tab 11/17/19 [Rx] predniSONE 0 mg PO DIRECTED #30 tab 11/17/19 [Rx] Follow up Appointment(s)/Referral(s): Leila Curtis III, MD [Primary Care Provider] - 1-2 days Андрей Pedroza DO [Doctor of Osteopathic Medicine] - 2 Weeks Conner Alexander MD [STAFF PHYSICIAN] - 12/07/19 9:45 am Patient Instructions/Handouts: Chest Pain (DC)
--- NOTE | 2019-11-17 17:23 | ECHOS ---
STRESS ECHOCARDIOGRAM INDICATIONS: Chest pain, unstable angina. MEDICATIONS: BASELINE HEART RATE: 101 BASELINE BLOOD PRESSURE: 135/80 MAXIMUM HEART RATE: 136 MAXIMUM BLOOD PRESSURE: 125/65 85% MPHR: 134 100% MPHR: 158 METS: MAXIMUM STAGE REACHED: 2 mcg/kg per minute. TOTAL EXERCISE TIME: 3:45 CLINICAL INFORMATION: Patient was given dobutamine infusion according to the standard protocol. Peak heart rate of 136 was achieved. Maximum blood pressure of 125/65 mmHg was noted. Resting EKG shows normal sinus rhythm with normal OH interval and interval and QRS duration and normal ST-T waves. During dobutamine infusion, J-point depression with upsloping ST segments were noted. Occasional PVCs were noted. The baseline echocardiographic images reveal a normal left ventricular chamber size with normal left ventricular systolic function. At the peak dose of dobutamine infusion, normal increase in the wall thickness and contractility is noted. FINAL IMPRESSION: This dobutamine stress echocardiographic study is negative for stress-induced ischemia. EKG portion of the stress test is not suggestive of ischemia. Occasional PVCs were noted. MMODL / IJN: [id number] /
[2019-11-17] MEDS ORDERED: FAMOTIDINE 20 MG TAB PO SCH (21:00)
== END 2019-11-17 18:44 ==
LOC: EC 09:14 → 1SOBS 11:55
PROVIDERS: ADMIT Hospitalist; ATTEND Hospitalist
DX: R07.9 Chest pain, unspecified (principal); R06.00 Dyspnea, unspecified; R73.9 Hyperglycemia, unspecified; E78.5 Hyperlipidemia, unspecified; E03.9 Hypothyroidism, unspecified; Z87.891 Personal history of nicotine dependence; Z79.51 Long term (current) use of inhaled steroids; Z79.890 Hormone replacement therapy; Z79.899 Other long term (current) drug therapy; Z90.710 Acquired absence of both cervix and uterus; Z82.3 Family history of stroke; Z82.49 Family history of ischemic heart disease and other diseases of the circulatory system; Z82.5 Family history of asthma and other chronic lower respiratory diseases; Z81.8 Family history of other mental and behavioral disorders
CPT/HCPCS: 93005 ×2; 96372 ×2; 96374; 96376 ×2; 96361; 99285; 36415; 93306; 93351; 85379; 83880; 80061; 80053; 84443; 83605; 83735; 84484; 85025; 85610; 85730; 81001; 71046; G0378 ×2; J1250; J1644 ×2; J2930 ×2; Q9950

== ENCOUNTER 2019-12-29 02:38 | Emergency (ER) | payer BC ==
[2019-12-29 02:53] VITALS: BP 151/96; PULSE 110; RESP 20; TEMP 98.3
--- NOTE | 2019-12-29 03:22 | ED ---
General Adult HPI - General Chief complaint: Recheck/Abnormal Lab/Rx Stated complaint: Adverse Med Reaction Time Seen by Provider: 12/29/19 02:50 Source: patient, family Mode of arrival: ambulatory Limitations: no limitations - History of Present Illness Initial comments: Carlota is a pleasant 64-year-old female who presents the emergency department today for reevaluation of adverse reaction to medication. Patient was admitted approximately 3 weeks ago for COPD exacerbation and was prescribed new long- acting inhalers for her COPD. Patient reports that the first one she was prescribed caused her to feel very jittery, she tried to stand on medication for over a week but can extend the side effects so she contacted Dr. Dr. Pedroza and had her medication changed. Patient continued to feel what she believed was side effects from the medications. Patient reports she is very shaky and uncomfortable. Patient reports she followed with her primary care physician about this and they advised her she is likely suffering from anxiety and prescribed Lexapro and when necessary clonazepam. Patient does report feeling somewhat better when she takes her clonazepam but despite taking Lexapro for 4 days she's not feeling any better. Patient reports a sensation is similar to when she used to take albuterol however when she would take her albuterol i nhaler she would only feel her heart racing, and shaky for about one to 5 minutes after taking it. Patient reports that on these new medications she continues to feel shaky throughout the day all day every day. She denies any chest pain palpitation shortness of breath. She reports her breathing has improved using these medications but that she is just not tolerating the side effects. - Related Data Home Medications Medication Instructions Recorded Confirmed Calcium Carbonate/Vitamin D3 1 tab PO W/SUPPER 11/16/19 11/16/19 [Calcium 500-Vit D3 200 Tablet] Levothyroxine Sodium [Synthroid] 75 mcg PO DAILY 11/16/19 11/16/19 Multivitamins, Thera [Multivitamin 1 tab PO W/SUPPER 11/16/19 11/16/19 (formulary)] Previous Rx's Medication Instructions Recorded Albuterol Sulfate [Proair Hfa] 1 - 2 puff INHALATION RT-Q6H PRN 11/17/19 #1 inhaler Doxycycline [Vibramycin] 100 mg PO BID 3 Days #6 cap 11/17/19 Ezetimibe [Zetia] 10 mg PO DAILY #30 tab 11/17/19 Famotidine [Pepcid] 20 mg PO Q12HR #60 tab 11/17/19 Pravastatin Sodium [Pravachol] 80 mg PO DAILY #30 tab 11/17/19 predniSONE 0 mg PO DIRECTED #30 tab 11/17/19 Allergies Allergy/AdvReac Type Severity Reaction Status Date / Time No Known Allergies Allergy Verified 12/29/19 02:53 Review of Systems ROS Statement: Those systems with pertinent positive or pertinent negative responses have been documented in the HPI. ROS Other: All systems not noted in ROS Statement are negative. Past Medical History Past Medical History: COPD, Eye Disorder, Hyperlipidemia, Osteoarthritis (OA), Thyroid Disorder Additional Past Medical History / Comment(s): Bilateral cataracts, arthritis R side of body, hypothyroid, just learned today that I have COPD. History of Any Multi-Drug Resistant Organisms: None Reported Past Surgical History: Breast Surgery, Hysterectomy, Orthopedic Surgery, Tonsillectomy Additional Past Surgical History / Comment(s): L breast benign lumpectomy, colonoscopy, bilateral ankle surgery as a child to remove extra bone. Past Anesthesia/Blood Transfusion Reactions: No Reported Reaction Past Psychological History: No Psychological Hx Reported Smoking Status: Former smoker Past Alcohol Use History: None Reported Past Drug Use History: None Reported - Past Family History Father Family Medical History: COPD, Coronary Artery Disease (CAD), Myocardial Infarction ([place]) Additional Family Medical History / Comment(s): Father had his first [place] at the age of 36 yrs. Mother Family Medical History: COPD, CVA/TIA Additional Family Medical History / Comment(s): Mother had a CVA at the age of 42 yrs. She had depression and urinary incontinence. General Exam - General Exam Comments Initial Comments: Physical Exam GENERAL: Patient is well-developed and well-nourished. Patient is nontoxic and well- hydrated and is in no distress. HENT: Normocephalic, Atraumatic. EYES: PERRL, EOMI PULMONARY: Unlabored respirations. No audible rales rhonchi or wheezing was noted. CARDIOVASCULAR: There is a regular rate and rhythm without any murmurs gallops or rubs. ABDOMEN: Soft and nontender with normal bowel sounds. SKIN: Skin is clear with no lesions or rashes and otherwise unremarkable. : Deferred NEUROLOGIC: Patient is alert and oriented x3. Moving all extremities spontaneously MUSCULOSKELETAL: Normal extremities with adequate strength and full range of motion. No lower extremity swelling or edema. No calf tenderness. PSYCHIATRIC: Normal psychiatric evaluation. Limitations: no limitations Course Vital Signs 12/29/19 02:50 Temperature 98.3 F Pulse Rate 110 H Respiratory 20 Rate Blood Pressure 151/96 O2 Sat by Pulse 90 L Oximetry EKG Findings - EKG Comments: EKG Findings:: EKG was obtained as part of the ALLERGIC reaction workup, EKG was obtained at 251, rate is 95, rhythm is sinus with a short [place], [place] 88, care is 84, QTC is 397. There are no acute ST elevations or depressions there is no evidence of acute ischemia or infarction. Medical Decision Making - Medical Decision Making The patient was seen and evaluated history is obtained from patient Patient does seem to be having an adverse reaction to the in the inhaler however does not seem to be having an acute ALLERGIC reaction. I advised the patient that she should contact her road inspector to discuss medical management. This time there is no indication for further emergent intervention and patient is comfortable with plan for discharge home. Disposition Clinical Impression: Medication reaction Disposition: HOME SELF-CARE Condition: Stable Is patient prescribed a controlled substance at d/c from ED?: No Referrals: Leila Curtis III, MD [Primary Care Provider] - 1-2 days
== END 2019-12-29 03:45 | disposition home or self-care (01) ==
LOC: EC 02:38
DX: R25.9 Unspecified abnormal involuntary movements (principal); R00.0 Tachycardia, unspecified; T48.6X5A Adverse effect of antiasthmatics, initial encounter; T42.4X5A Adverse effect of benzodiazepines, initial encounter; J44.9 Chronic obstructive pulmonary disease, unspecified; E03.9 Hypothyroidism, unspecified; Z87.891 Personal history of nicotine dependence; Z79.890 Hormone replacement therapy
CPT/HCPCS: 99284

== ENCOUNTER → 2024-06-15 | Outpatient (CLI) | payer MEDICARE ==
--- NOTE | 2024-07-12 15:43 | US ---
[facility] - Radiology Report Patient: Carlota Dubon Ordering Physician: Unknown, Unknown ID: [id number] Phone, Pager: Phone: N/A Pager: N/A : 1955 Age/Gender: 68Y, F Primary Location: N/A Procedure: US thyroid st tissue head/neck Study Date: 06/15/2024 3:02:00 PM EXAMINATION TYPE: US thyroid st tissue head/neck DATE OF EXAM: 06/16/2024 COMPARISON: NONE CLINICAL INDICATION: Unknown, old with history of ; Pt states her new provider felt a nodule. Pt has been on thyroid medication for 50 years. Thyroid overall appears atrophied and difficult to see. No distinct nodules seen. IMPRESSION: Atrophic changes of the thyroid lobes.
== END | disposition home or self-care (01) ==
LOC: RADUSWWP 10:57
PROVIDERS: ATTEND Internal Medicine
DX: E03.4 Atrophy of thyroid (acquired) (principal); R22.1 Localized swelling, mass and lump, neck
CPT/HCPCS: 76536